=== PATIENT | female | born 1975 | race African-American/Black ===

== ENCOUNTER 2017-11-24 03:44 | Emergency (ER) | END 2017-11-24 05:30 | disposition home or self-care (01) ==

== ENCOUNTER 2018-04-26 06:08 | Emergency (ER) | payer OTHER ==
[~2018-04-26] VITALS: Ht 170.2 cm; Wt 72.3 kg
[~2018-04-26 06:08] MED LIST: CLIN300C10 PO; IBUP800T48 PO
[2018-04-26 06:11] VITALS: Ht 170.2 cm; Wt 72.3 kg
[2018-04-26] MEDS ORDERED: ONDANSETRON (ODT) 4 MG TAB ODT STA (06:31)
[2018-04-26] MEDS ORDERED: NAPR-985 PO (06:33)
[2018-04-26] MEDS ORDERED: CLIN300C10 PO (06:33)
[2018-04-26] MEDS ORDERED: HYDR-4011 PO (06:33)
[2018-04-26] MEDS ORDERED: CLINDAMYCIN 300 MG INJ IM ONE (07:00)
[2018-04-26] MEDS ORDERED: CLINDAMYCIN 600 MG INJ IM ONE (07:00)
[2018-04-26] MEDS ORDERED: HYDROCODONE/APAP (5/325) TAB PO ONE (07:00)
[2018-04-26 07:24] VITALS: BP 123/85; PULSE 81; RESP 17
--- NOTE | 2018-04-26 09:01 | ERD ---
ER Documentation Chief Complaint Chief Complaint right side jaw pain abscess HPI 42 yr old female complaining facial swelling to the right lower jaw. Patient states that started earlier today. Denies fever. Denies any trouble swallowing. Denies any dental pain but does have broken teeth. Has not taken medications for her symptoms. Denies other medical problems. NKDA. Surgical history denies. Social history denies ROS All systems reviewed and are negative except as per history of present illness. Medications Home Meds Active Scripts Naproxen* (Naprosyn*) 500 Mg Tablet, 500 MG PO BID PRN for PAIN AND/OR INFLAMMATION, #30 TAB Prov:MARIANN CASTILLO PA-C 04/26/18 Hydrocodone/Acetaminophen (Columbia 5-325 Tablet) 1 Each Tablet, 1 TAB PO Q6H PRN for PAIN, #7 TAB Prov:MARIANN CASTILLO PA-C 04/26/18 Clindamycin Hcl* (Clindamycin Hcl*) 300 Mg Capsule, 300 MG PO TID for 10 Days, CAP Prov:MARIANN CASTILLO PA-C 04/26/18 Ibuprofen* (Motrin*) 800 Mg Tab, 800 MG PO Q6H PRN for PAIN AND OR ELEVATED TEMP, #30 TAB Prov:GIGI POST F 11/24/17 Clindamycin Hcl* (Clindamycin Hcl*) 300 Mg Capsule, 300 MG PO TID for 10 Days, CAP Prov:PASILABANLONNYAR F 11/24/17 Allergies Allergies: Coded Allergies: No Known Allergy (Unverified , 04/26/18) PMhx/Soc Hx Alcohol Use: Yes Hx Substance Use: Yes (MARIJUANA) Hx Tobacco Use: Yes Smoking Status: Current every day smoker FmHx Family History: No diabetes, No coronary disease, No other Physical Exam Vitals Vital Signs Date Temp Pulse Resp B/P (MAP) Pulse Ox O2 O2 Flow FiO2 Time Delivery Rate 04/26/18 98.0 81 17 123/85 100 07:24 (98) 04/26/18 98.0 98 20 127/99 100 06:11 (108) Physical Exam GENERAL: The patient is well-appearing, well-nourished, in no acute distress HEENT: Atraumatic. Conjunctivae are pink. Pupils equal, round, and reactive to light. There is no scleral icterus. Tympanic membranes clear bilaterally. Oropharynx clear. Dentition noted throughout with cracked teeth and swelling to the gumline. Tenderness to the gumline of the right lower space. CHEST: Clear to auscultation bilaterally. There are no rales, wheezes or rhonch i. HEART: Regular rate and rhythm. No murmurs, clicks, rubs or gallops. No S3 or S4. SKIN: Swelling noted to the right lower jaw. Results 24 hrs Current Medications Medications Dose Sig/Abraham Start Time Status Last (Trade) Ordered Route PRN Stop Time Admin Dose Reason Admin Clindamycin 600 mg ONCE ONCE 04/26/18 Cancel Phosphate IM 07:00 04/26/18 (Cleocin) 07:01 1 tab ONCE ONCE 04/26/18 DC 04/26/18 Acetaminophen PO 07:00 04/26/18 06:51 / 07:01 Hydrocodone Bitart ([place]ia (5/325)) Ondansetron 4 mg ONCE STAT 04/26/18 DC 04/26/18 HCl (Zofran ODT 06:31 04/26/18 06:51 Odt) 06:32 Clindamycin 600 mg ONCE ONCE 04/26/18 DC 04/26/18 Phosphate IM 07:00 04/26/18 07:00 (Cleocin) 07:01 Procedures/MDM ER course: IM injection of clindamycin given ED. Columbia given ED for pain. Patient was stable upon discharge. Patient was not driving. MDM: 42-year-old female presenting with facial swelling. Patient did have s welling noted to the right gum space which is likely infection and cause for facial swelling. Patient is told to follow-up with dentist as I believe patient has underlying dental abscess. I have low suspicion for airway compromise or deep tracking infection. I have low suspicion for sepsis. Patient is discharged stricter precautions and told to follow-up with primary care within 1-2 days for close evaluation. Patient is told if symptoms change or worsen to immediately return to the ER. All questions answered at discharge Departure Diagnosis: Primary Impression: Dental abscess Condition: Stable Patient Instructions: Dental Abscess Referrals: [facility] ([facility]) Additional Instructions: FOLLOW UP WITH YOUR PRIMARY CARE PHYSICIAN TOMORROW.Return to this facility if you are not improving as expected. MARIANN CASTILLO PA-C 3, 2019 09:01
== END 2018-04-26 07:17 | disposition home or self-care (01) ==
LOC: FTE 06:08
DX: K04.7 Periapical abscess without sinus (principal); F17.210 Nicotine dependence, cigarettes, uncomplicated
CPT/HCPCS: 96372; Z7502; Z7610